=== PATIENT | female | born 1985 | race Caucasian/White ===

== ENCOUNTER 2021-05-11 04:12 | Inpatient (IN) ==
[2021-05-11] MEDS ORDERED: MOM Conc 10 ML UD.LIQ PO PRN (09:38)
[2021-05-11] MEDS ORDERED: *HR* LORazepam 1 MG TABLET PO PRN (09:38)
[2021-05-11] MEDS ORDERED: Haloperidol Lactate 5 MG/ML VIAL IM PRN (09:38)
[2021-05-11] MEDS ORDERED: haloperidoL 5 MG TABLET PO PRN (09:38)
[2021-05-11] MEDS ORDERED: Ibuprofen 400 MG TABLET PO PRN (09:38)
[2021-05-11] MEDS ORDERED: Mag Hydrox/Al Hydrox/Simeth 30 ML UDC PO PRN (09:38)
[2021-05-11] MEDS ORDERED: *HR* LORazepam 2 MG/ML VIAL IM PRN (09:38)
[2021-05-11 11:17] LABS: Adenovirus Not Detected (Not Detect); Bordetella Pertussis Not Detected (Not Detect); Chlamydophila pneumoniae Not Detected (Not Detect); Coronavirus 229E Not Detected (Not Detect); Coronavirus HKU1 Not Detected (Not Detect); Coronavirus NL63 Not Detected (Not Detect); Coronavirus OC43 Not Detected (Not Detect); Human Metapneumovirus Not Detected (Not Detect); Human Rhinovirus/Enterovirus Not Detected (Not Detect); Influenza A Subtype 2009 H1 Not Detected (Not Detect); Influenza B Not Detected (Not Detect); Mycoplasma pneumoniae Not Detected (Not Detect); Parainfluenza Virus 1 Not Detected (Not Detect); Parainfluenza Virus 2 Not Detected (Not Detect); Parainfluenza Virus 3 Not Detected (Not Detect); Parainfluenza Virus 4 Not Detected (Not Detect); Respiratory Syncytial Virus Not Detected (Not Detect); SARS-CoV-2 Not Detected (Not Detect)
[2021-05-12] MEDS: hydrOXYzine pamoate 25 MG CAPSULE PO PRN ×2 (14:19→20:48)
[2021-05-12] MEDS: Ibuprofen 800 MG TABLET PO PRN (14:19)
[2021-05-12] MEDS: traZODone 50 MG TABLET PO PRN (20:48)
[2021-05-13] MEDS: Ibuprofen 800 MG TABLET PO PRN (11:18)
[2021-05-13] MEDS: hydrOXYzine pamoate 25 MG CAPSULE PO PRN (20:40)
[2021-05-14] MEDS: Ibuprofen 800 MG TABLET PO PRN ×2 (07:39→18:58)
[2021-05-14] MEDS ORDERED: Acetaminophen/Aspirin/Caffeine TABLET PO PRN (09:39)
[2021-05-14] MEDS: hydrOXYzine pamoate 25 MG CAPSULE PO PRN (20:31)
[2021-05-14] MEDS: traZODone 50 MG TABLET PO PRN (20:31)
[2021-05-15] MEDS: hydrOXYzine pamoate 25 MG CAPSULE PO PRN (08:50)
[2021-05-15] MEDS: Lurasidone 20 MG TABLET PO SCH (17:15)
[2021-05-15] MEDS: traZODone 50 MG TABLET PO PRN (20:32)
[2021-05-16 08:15] VITALS: BP 101/74; PULSE 92; TEMP 98.6; O2SAT 100
[2021-05-16] MEDS: Ibuprofen 800 MG TABLET PO PRN (08:58)
[2021-05-16] MEDS: Lurasidone 20 MG TABLET PO SCH (16:25)
== END 2021-05-16 19:39 | disposition home or self-care (01) | DRG 384 ==
LOC: EMEROOARM 04:12 → 1ANU 12:06
PROVIDERS: ADMIT Psychiatry & Neurology Psychiatry; ATTEND Psychiatry & Neurology Psychiatry